=== PATIENT | female | born 1945 | race American Indian/Alaskan Native ===

== ENCOUNTER 2017-08-24 19:21 | Emergency (ER) | payer MEDICARE ==
[2017-08-24] MEDS ORDERED: TENIVAC IM ONE (22:10)
[2017-08-24] MEDS ORDERED: MORPHINE IM ONE (22:16)
[2017-08-24] MEDS ORDERED: ZOFRAN PO ONE ×2 (22:16→22:30)
[2017-08-24] MEDS ORDERED: ZESTRIL PO ONE (22:17)
[2017-08-24] MEDS ORDERED: CATAPRES PO ONE (22:18)
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
[2017-08-24 23:01] VITALS: BP 153/89
== END 2017-08-25 00:10 | disposition other institution (70) ==
LOC: ED 19:21
DX: T23.241A Burn of second degree of multiple right fingers (nail), including thumb, initial encounter (principal); I10 Essential (primary) hypertension; X10.2XXA Contact with fats and cooking oils, initial encounter; Y93.89 Activity, other specified; Y92.89 Other specified places as the place of occurrence of the external cause; Y99.8 Other external cause status
CPT/HCPCS: 90471; 90714; 96372; 99284; J2270; Q0162

== ENCOUNTER 2019-04-16 21:51 | Emergency (ER) | payer MEDICARE ==
[2019-04-16 22:45] VITALS: BP 173/61
--- NOTE | 2019-04-16 22:46 | Emergency Department Report ---
Suture/Staple Removal - [facility] Chief Complaint: Laceration/Recheck/Suture Stated Complaint: SUTURE REMOVAL Time Seen by Provider: 04/16/19 22:43 When Sutures or Sky Placed: >14 Days Ago Wound Location: right thumb ED Review of Systems ROS: Stated complaint: SUTURE REMOVAL Other details as noted in HPI Comment: All other systems reviewed and negative ED Past Medical Hx - Past Medical History Hx Hypertension: Yes Additional medical history: right cataract;prolapse vaginal - Surgical History Additional Surgical History: hyst, ovaries, tonsils - Social History Smoking Status: Never Smoker Substance Use Type: None - Medications Home Medications: Home Medications Medication Instructions Recorded Confirmed Last Taken Type Ibuprofen [Motrin] 600 mg PO Q8H PRN #20 tablet 04/02/19 Unknown Rx cephALEXin [Keflex] 500 mg PO Q8HR #30 cap 04/02/19 Unknown Rx Suture Removal Exam - Exam General: Vital signs noted. No distress. Alert and acting appropriately. Wound: No Pathologic Erythema, No Tenderness, No Drainage, No Pus, No Wound Dehiscence Other Systems: All other systems reviewed and are unremarkable. ED Recheck MDM - Medical Decision Making 73-year-old female presents for suture removal. About 8 blue sutures removed from the right thumb. There was no bleeding, and there was no swelling. Patient tolerated procedure well. Discuss to clean abrasion daily. Instructions given. Discussed follow-up with primary care physician. Critical care attestation.: If time is entered above; I have spent that time in minutes in the direct care of this critically ill patient, excluding procedure time. ED Disposition Clinical Impression: Visit for suture removal Disposition: DC- TO HOME OR SELFCARE Is pt being admited?: No Does the pt Need Aspirin: No Condition: Stable Instructions: Abrasion (ED) Additional Instructions: f/u with PCP clean wound as instructed Referrals: SHLOMO PEREZ MD [Primary Care Provider] - 3-5 Days Forms: Work/School Release Form(ED) Time of Disposition: 22:45
== END 2019-04-16 23:09 | disposition home or self-care (01) ==
LOC: ED 21:51
DX: S61.011D Laceration without foreign body of right thumb without damage to nail, subsequent encounter (principal); X58.XXXD Exposure to other specified factors, subsequent encounter